=== PATIENT | male | born 1955 | race Caucasian/White ===

== ENCOUNTER → 2017-08-02 | Outpatient (CLI) | payer OTHER ==
[~2017-08-02] MED LIST: ALLEGRA 60MG TA60 MG PO; AMOXICILLIN 8751 TAB PO; AVALOX; AVELOX; BIAXIN FILMTAB500 MG PO; FISH OIL1000 MG PO; LEVAQUIN 250MG250 MG PO; MULTI VITAMINS1 TAB PO; NORCO 325 MG-51 TAB PO; PRILOSEC 20MG20 MG PO; SINGULAIR 110 MG/TAB PO; SINGULAIR10 MG PO; VITAMINC1000TA; WELLBUTRIN PO; WELLBUTRIN XL150 MG PO; ZOFRAN ODT8 MG PO
== END ==
LOC: COL.RAD 13:31
DX: M75.112 Incomplete rotator cuff tear or rupture of left shoulder, not specified as traumatic (principal)
CPT/HCPCS: J3301; Q9967

== ENCOUNTER 2018-07-08 17:31 | Emergency (ER) | payer BC ==
[~2018-07-08] VITALS: Ht 180.3 cm; Wt 113.6 kg
[2018-07-08 17:52] VITALS: TEMP 98.4
[2018-07-08 19:37] LABS: BASO % 0.3 % (0.0-2.0); EOS # 0.2 (0.0-0.7); EOS % 1.5 % (0-4.0); GRAN % 69.2 % (42.2-75.2); HEMATOCRIT 46.4 % (42.0-52.0); HEMOGLOBIN 15.3 g/dl (13.5-18.0); LYMPH % 20.7 % (20.0-51.0); MEAN CELL VOLUME 86 fl (80.0-100.0); MEAN CORPUSCULAR HEMOGLOBIN 28 pg (27.0-31.0); MEAN CORPUSCULAR HGB CONC 33 g/dl (33.0-37.0); MEAN PLATELET VOLUME 10.2 fl (7.4-10.4); MONO # 1.1 (0.1-0.6); MONO % 7.7 % (1.7-9.3); PLATELET COUNT 258 K/mm3 (130-400); RED BLOOD COUNT 5.38 M/mm3 (4.20-5.60); REDCELL DISTRIBUTION WIDTH-CV 13.6 % (11.5-14.5)
[2018-07-08 19:42] LABS: PROTHROMBIN TIME 11.8 SECONDS (9.7-12.8)
[2018-07-08 19:47] LABS: ALANINE AMINOTRANSFERASE 34 U/L (21-72); ALBUMIN 4.1 gm/dL (3.5-5.0); ALKALINE PHOSPHATASE 56 U/L (50-136); ANION GAP 7 mmol/L (7-16); AST,SGOT 23 U/L (15-37); BILIRUBIN,TOTAL 1.2 mg/dL (0.0-1.0); BLOOD UREA NITROGEN 16 mg/dL (9-20); CALCIUM 8.9 mg/dL (8.4-10.2); CARBON DIOXIDE 27 mmol/L (22-30); CHLORIDE 104 mmol/L (98-107); CREATININE, serum 0.77 mg/dL (0.66-1.25); GLUCOSE 88 mg/dL (74-106); LIPASE 50 U/L (23-300); POTASSIUM 4.3 mmol/L (3.4-5.0); SODIUM 138 mmol/L (137-145); TOTAL PROTEIN 6.8 gm/dL (6.4-8.2)
[2018-07-08 19:48] LABS: COLLECTION METHOD CLEAN CATCH
[2018-07-08 19:56] LABS: PH 6 (5-8); SQUAMOUS EPITHELIAL None Seen /hpf; URINE APPEARANCE Clear; URINE BACTERIA None Seen /hpf; URINE BILIRUBIN Negative (NEGATIVE); URINE BLOOD Negative (NEGATIVE); URINE COLOR Yellow; URINE GLUCOSE Negative (NEGATIVE); URINE KETONE Trace (NEGATIVE); URINE LEUKOCYTE ESTERASE Negative (NEGATIVE); URINE NITRATE Negative (NEGATIVE); URINE PROTEIN(semi-quant) Negative (NEGATIVE); URINE RBC None Seen /hpf; URINE UROBILINOGEN Negative (NEGATIVE)
[2018-07-08 19:58] LABS: TROPONIN-I < 0.012 ng/mL (0.000-0.034)
[2018-07-08 21:41] VITALS: BP 130/71; PULSE 72
== END 2018-07-08 21:41 | disposition home or self-care (01) ==
LOC: COL.ER 17:31
PROVIDERS: Emergency Medicine
DX: R10.11 Right upper quadrant pain (principal); Z90.49 Acquired absence of other specified parts of digestive tract; Z98.890 Other specified postprocedural states
CPT/HCPCS: J2405; J3010; J7030

== ENCOUNTER → 2018-09-25 | Outpatient (CLI) | payer BC ==
[2018-09-25 16:43] LABS: HIV 1/2 Antibodies Non-Reactive; HIV-1p24 Antigen Non-Reactive
== END ==
LOC: COL.LAB 15:16
PROVIDERS: Orthopaedic Surgery
DX: Z01.812 Encounter for preprocedural laboratory examination (principal); M17.11 Unilateral primary osteoarthritis, right knee

== ENCOUNTER 2020-11-01 13:01 | Outpatient (CLI) | payer BC ==
[~2020-11-01] VITALS: Ht 180.3 cm; Wt 109.0 kg
[~2020-11-01 13:01] MED LIST changes: +CLARITIN 1010 MG/TAB PO; +LIPITOR 10MG10 MG PO; +NEURONTIN300 MG/CAP PO; +OMEGA-31 SGL PO; +WELLBUTRIN XL300 M1 PO
[2020-11-01 13:19] VITALS: BP 120/105; PULSE 79; TEMP 97.4
[2020-11-01 13:59] VITALS: BP 122/75; PULSE 72
[2020-11-01 14:15] VITALS: BP 132/79; PULSE 74; TEMP 98.3
[2020-11-01 14:30] VITALS: BP 127/77; PULSE 74
[2020-11-01 14:45] VITALS: BP 131/80; PULSE 72
[2020-11-01 15:00] VITALS: BP 127/78; PULSE 72; TEMP 98.7
--- NOTE | 2020-11-01 15:20 | NUR ---
Pt tolerated BAM infusion without issue. 1 hr observation completed. Pt is escorted out to 's car, gait steady. INT was DC'd with catheter intact prior to DC.
== END 2020-11-01 15:48 | disposition home or self-care (01) ==
LOC: EUO 13:01
DX: U07.1 COVID-19 (principal)

== ENCOUNTER → 2023-03-02 | Outpatient (CLI) | payer MEDICARE, OTHER ==
[~2023-03-02] MED LIST changes: +MIRALAX238G PO; +ULTRAM 50MG TAB50 MG PO; +ZOFRAN ODT4 MG PO
== END ==
LOC: COL.RAD 13:34
DX: G83.89 Other specified paralytic syndromes (principal); R06.02 Shortness of breath

== ENCOUNTER 2023-09-16 08:55 | Emergency (ER) | payer MEDICARE, OTHER ==
[~2023-09-16] VITALS: Ht 180.3 cm; Wt 122.7 kg
[~2023-09-16 08:55] MED LIST changes: -MIRALAX238G PO; -ZOFRAN ODT4 MG PO
[2023-09-16 09:00] VITALS: TEMP 97.6
[2023-09-16 09:49] LABS: BASO # 0.1 K/mm3 (0.0-0.2); BASO % 0.5 % (0.0-2.0); EOS # 0.3 K/mm3 (0.0-0.7); EOS % 2.3 % (0.0-4.0); GRAN # 9.1 K/mm3 (1.4-6.5); GRAN % 73.7 % (42.2-75.2); HEMATOCRIT 45.7 % (42.0-52.0); HEMOGLOBIN 15.4 g/dl (13.5-18.0); LYMPH # 1.8 K/mm3 (1.2-3.4); LYMPH % 14.4 % (20.0-51.0); MEAN CELL VOLUME 87 fl (80.0-100.0); MEAN CORPUSCULAR HEMOGLOBIN 29 pg (27-31); MEAN CORPUSCULAR HGB CONC 34 g/dl (33.0-37.0); MEAN PLATELET VOLUME 10.2 fl (7.4-10.4); MONO # 1.1 K/mm3 (0.1-0.6); MONO % 8.6 % (1.7-9.3); PLATELET COUNT 271 K/mm3 (130-400); RED BLOOD COUNT 5.28 M/mm3 (4.20-5.60); REDCELL DISTRIBUTION WIDTH-CV 13.3 % (11.5-14.5)
[2023-09-16 10:05] LABS: BILIRUBIN,TOTAL 1.9 mg/dL (0.2-1.2); CALCIUM 9.9 mg/dL (8.4-10.2); CREATININE, serum 0.75 mg/dL (0.72-1.25); POTASSIUM 3.9 mmol/L (3.5-4.5)
[2023-09-16] MEDS ORDERED: MIRALAX238G PO (12:10)
[2023-09-16] MEDS ORDERED: ZOFRAN ODT4 MG PO (12:11)
[2023-09-16] MEDS ORDERED: NORCO 325 MG-51 TAB PO (12:11)
[2023-09-16 12:30] VITALS: BP 150/87; PULSE 74
== END 2023-09-16 12:45 | disposition home or self-care (01) ==
LOC: COL.ER 08:55
PROVIDERS: Personal Emergency Response Attendant
DX: R10.11 Right upper quadrant pain (principal); K85.90 Acute pancreatitis without necrosis or infection, unspecified; E80.7 Disorder of bilirubin metabolism, unspecified; D72.829 Elevated white blood cell count, unspecified; Z90.49 Acquired absence of other specified parts of digestive tract; Z87.891 Personal history of nicotine dependence
CPT/HCPCS: J1200; J2270; J2405; J2930; J7030; Q9967